=== PATIENT | female | born 1940 | race Caucasian/White ===

== ENCOUNTER 2016-10-23 22:32 | Inpatient (IN) | payer MEDICARE, BC ==
[2016-10-23] MEDS ORDERED: ASPIRIN 81 MG CHEW PO STA (23:04)
[2016-10-23] MEDS ORDERED: NITROGLYCERIN OINT 1 INCH/GM PACKET TOPICAL STA (23:04)
--- NOTE | 2016-10-23 23:06 | ED ---
General Adult HPI - General Chief complaint: Chest Pain Stated complaint: Chest Pain Time Seen by Provider: 10/23/16 22:36 Source: patient, EMS, RN notes reviewed Mode of arrival: EMS Limitations: no limitations - History of Present Illness Initial comments: Patient is a pleasant 75-year-old female presenting to the emergency department complaining of chest discomfort. Onset of symptoms was prior to arrival while watching TV. Discomfort feels a pressure. Discomfort is now near resolved. Patient did have some associated dyspnea. No nausea or diaphoresis. Symptoms are somewhat similar to previous heart problems. Patient does have a history of CABG. No radiation of pain. - Related Data Home Medications Medication Instructions Recorded Confirmed Albuterol Inhaler [Ventolin Hfa 1 - 2 puff INHALATION RT-Q6H PRN 10/23/16 Inhaler] Naproxen Sodium [Aleve] 220 mg PO DAILY PRN 10/23/16 10/23/16 Allergies Allergy/AdvReac Type Severity Reaction Status Date / Time No Known Allergies Allergy Unverified 10/23/16 23:21 Review of Systems ROS Statement: Those systems with pertinent positive or pertinent negative responses have been documented in the HPI. ROS Other: All systems not noted in ROS Statement are negative. Constitutional: Denies: fever Eyes: Denies: eye pain ENT: Denies: ear pain Respiratory: Reports: dyspnea. Denies: cough Cardiovascular: Reports: chest pain Endocrine: Denies: fatigue Gastrointestinal: Denies: abdominal pain Genitourinary: Denies: dysuria Musculoskeletal: Denies: back pain Skin: Denies: rash Neurological: Denies: weakness Past Medical History Past Medical History: Asthma, Diabetes Mellitus, Myocardial Infarction ([place]) History of Any Multi-Drug Resistant Organisms: None Reported Past Surgical History: Appendectomy Additional Past Surgical History / Comment(s): open heart surgery, Past Psychological History: No Psychological Hx Reported Smoking Status: Never smoker Past Alcohol Use History: Occasional Past Drug Use History: None Reported General Exam Limitations: no limitations General appearance: alert, in no apparent distress Head exam: Present: atraumatic Eye exam: Present: normal appearance, PERRL ENT exam: Present: normal oropharynx Neck exam: Present: normal inspection Respiratory exam: Present: normal lung sounds bilaterally. Absent: chest wall tenderness Cardiovascular Exam: Present: regular rate, normal rhythm Expanded Peripheral pulses: 2+: Radial (R), Radial (L), Dorsalis Pedis (R), Dorsalis Pedis (L) GI/Abdominal exam: Present: soft. Absent: tenderness Extremities exam: Present: normal inspection. Absent: pedal edema, calf tenderness Neurological exam: Present: alert Psychiatric exam: Present: normal affect, normal mood Skin exam: Present: normal color Course Vital Signs 10/23/16 10/23/16 22:49 23:54 Temperature 97.4 F L Pulse Rate 103 H 108 H Respiratory 16 20 Rate Blood Pressure 129/65 177/83 O2 Sat by Pulse 95 99 Oximetry - Reevaluation(s) Reevaluation #1: 10/23/16 23:06 Patient was infested with fleas in bed bugs and did need to be cleaned by nursing staff upon arrival. 10/23/16 23:52 Repeat EKG shows sinus tachycardia 107. W[place] 86. QRS 122. QT 362. QTC 43. Right axis. Right bundle branch block. No acute ST change. EKG Findings - EKG Comments: EKG Findings:: Sinus tachycardia 11. WY 100. QRS 116. QT 378. QTC 490. Right axis. Right bundle branch block. No acute ST change. Medical Decision Making - Medical Decision Making Patient reexamined and resting comfortably in bed. Patient did have nausea that has improved with Pepcid and Zofran. Patient currently symptom-free. Patient updated on results and plan. Case was discussed in detail with practitioner Franklin, who will admit for Dr. Jackson, covering for Dr. bell, who admits for Dr. Linton. - Lab Data Result diagrams: 10/23/16 23:05 10/23/16 23:05 Lab Results 10/23/16 10/23/16 10/23/16 Range/Units 23:05 23:05 23:05 WBC 14.6 H (3.8-10.6) k/uL RBC 4.96 (3.80-5.40) m/uL Hgb 14.5 (11.4-16.0) gm/dL Hct 43.2 (34.0-46.0) % MCV 87.2 (80.0-100.0) fL MCH 29.3 (25.0-35.0) pg MCHC 33.6 (31.0-37.0) g/dL RDW 13.9 (11.5-15.5) % Plt Count 329 (150-450) k/uL Neutrophils % 82 % Lymphocytes % 11 % Monocytes % 5 % Eosinophils % 1 % Basophils % 1 % Neutrophils # 12.0 H (1.3-7.7) k/uL Lymphocytes # 1.6 (1.0-4.8) k/uL Monocytes # 0.7 (0-1.0) k/uL Eosinophils # 0.1 (0-0.7) k/uL Basophils # 0.1 (0-0.2) k/uL PT (9.0-12.0) sec INR (<1.2) APTT (22.0-30.0) sec Sodium 139 (137-145) mmol/L Potassium 5.4 H (3.5-5.1) mmol/L Chloride 99 (98-107) mmol/L Carbon Dioxide 28 (22-30) mmol/L Anion Gap 12 mmol/L BUN 21 H (7-17) mg/dL Creatinine 0.50 L (0.52-1.04) mg/dL Est GFR (MDRD) Af Amer >60 (>60 ml/min/1.73 sqM) Est GFR (MDRD) Non-Af >60 (>60 ml/min/1.73 sqM) Glucose 262 H (74-99) mg/dL Calcium 9.4 (8.4-10.2) mg/dL Magnesium 1.5 L (1.6-2.3) mg/dL Total Bilirubin 1.8 H (0.2-1.3) mg/dL AST 53 H (14-36) U/L ALT 22 (9-52) U/L Alkaline Phosphatase 101 (38-126) U/L Total Creatine Kinase 76 (30-135) U/L CK-MB (CK-2) 0.7 (0.0-2.4) ng/mL CK-MB (CK-2) Rel Index 0.9 Troponin I <0.012 (0.000-0.034) ng/mL Total Protein 7.9 (6.3-8.2) g/dL Albumin 4.6 (3.5-5.0) g/dL 10/23/16 Range/Units 23:05 WBC (3.8-10.6) k/uL RBC (3.80-5.40) m/uL Hgb (11.4-16.0) gm/dL Hct (34.0-46.0) % MCV (80.0-100.0) fL MCH (25.0-35.0) pg MCHC (31.0-37.0) g/dL RDW (11.5-15.5) % Plt Count (150-450) k/uL Neutrophils % % Lymphocytes % % Monocytes % % Eosinophils % % Basophils % % Neutrophils # (1.3-7.7) k/uL Lymphocytes # (1.0-4.8) k/uL Monocytes # (0-1.0) k/uL Eosinophils # (0-0.7) k/uL Basophils # (0-0.2) k/uL PT 10.9 (9.0-12.0) sec INR 1.1 (<1.2) APTT 23.5 (22.0-30.0) sec Sodium (137-145) mmol/L Potassium (3.5-5.1) mmol/L Chloride (98-107) mmol/L Carbon Dioxide (22-30) mmol/L Anion Gap mmol/L BUN (7-17) mg/dL Creatinine (0.52-1.04) mg/dL Est GFR (MDRD) Af Amer (>60 ml/min/1.73 sqM) Est GFR (MDRD) Non-Af (>60 ml/min/1.73 sqM) Glucose (74-99) mg/dL Calcium (8.4-10.2) mg/dL Magnesium (1.6-2.3) mg/dL Total Bilirubin (0.2-1.3) mg/dL AST (14-36) U/L ALT (9-52) U/L Alkaline Phosphatase (38-126) U/L Total Creatine Kinase (30-135) U/L CK-MB (CK-2) (0.0-2.4) ng/mL CK-MB (CK-2) Rel Index Troponin I (0.000-0.034) ng/mL Total Protein (6.3-8.2) g/dL Albumin (3.5-5.0) g/dL - Radiology Data Radiology results: image reviewed (Chest x-ray shows no acute process.) Disposition Clinical Impression: Chest pain Disposition: ADMITTED IP TO THIS HOSP Referrals: Azam Linton DO [Primary Care Provider] - 1-2 days Decision Time: 00:23
[2016-10-23 23:19] LABS: Basophils # (A) 0.1 k/uL (0-0.2); Basophils % (A) 1 %; CH 29.6; CHCM 34.1; Eosinophils # (A) 0.1 k/uL (0-0.7); Eosinophils % (A) 1 %; HCT 43.2 % (34.0-46.0); HDW 2.72; HGB 14.5 gm/dL (11.4-16.0); Luc % (Auto) 1; Lymphocytes # (A) 1.6 k/uL (1.0-4.8); Lymphocytes % (A) 11 %; MCH 29.3 pg (25.0-35.0); MCHC 33.6 g/dL (31.0-37.0); MCV 87.2 fL (80.0-100.0); Mean Platelet Volume 8.3; Monocytes # (A) 0.7 k/uL (0-1.0); Monocytes % (A) 5 %; Neutrophils % (A) 82 %; RBC 4.96 m/uL (3.80-5.40); RDW 13.9 % (11.5-15.5); WBC 14.6 k/uL (3.8-10.6); WBC (Perox) 14.18
[2016-10-23 23:28] LABS: ALT 22 U/L (9-52); AST 53 U/L (14-36); Alkaline Phosphatase 101 U/L (38-126); Anion Gap 12 mmol/L; Blood Urea Nitrogen 21 mg/dL (7-17); Calcium 9.4 mg/dL (8.4-10.2); Carbon Dioxide 28 mmol/L (22-30); Chloride 99 mmol/L (98-107); Glucose 262 mg/dL (74-99); Magnesium 1.5 mg/dL (1.6-2.3); Non-African American GFR(MDRD) >60 (>60 ml/min/1.73 sqM); Sodium 139 mmol/L (137-145); Total Bilirubin 1.8 mg/dL (0.2-1.3); Total Protein 7.9 g/dL (6.3-8.2)
[2016-10-23 23:32] LABS: Potassium 5.4 mmol/L (3.5-5.1)
[2016-10-23 23:41] LABS: Creatine Kinase 76 U/L (30-135)
--- NOTE | 2016-10-23 23:44 | XR ---
EXAM: XR Chest, 1 View CLINICAL HISTORY: Reason: chest pain TECHNIQUE: Frontal view of the chest. COMPARISON: No relevant prior studies available. FINDINGS: Lungs: No focal consolidation. Pleural space: Unremarkable. No pneumothorax. Heart: Unremarkable. No cardiomegaly. Mediastinum: Postoperative mediastinum. Bones/joints: No acute osseous abnormality. Upper abdomen: Elevation of the left hemidiaphragm. IMPRESSION: No acute cardiopulmonary process.
[2016-10-23 23:49] LABS: INR 1.1 (<1.2); Partial Thromboplastin Time 23.5 sec (22.0-30.0); Prothrombin Time 10.9 sec (9.0-12.0)
[2016-10-23] MEDS ORDERED: FAMOTIDINE 20 MG/2 ML VIAL IV STA (23:51)
[2016-10-23] MEDS ORDERED: ONDANSETRON 4 MG/2 ML VIAL IVP STA (23:51)
[2016-10-24 00:04] LABS: Creatine Kinase MB 0.7 ng/mL (0.0-2.4); Troponin I <0.012 ng/mL (0.000-0.034)
[2016-10-24] MEDS ORDERED: NITROGLYCERIN SL TABS 0.4 MG TAB SUBLINGUAL PRN (00:24)
[2016-10-24 01:50] VITALS: BMI 22.7
[2016-10-24 06:06] LABS: Creatine Kinase 32 U/L (30-135)
[2016-10-24 06:20] LABS: Creatine Kinase MB 0.7 ng/mL (0.0-2.4); Troponin I <0.012 ng/mL (0.000-0.034)
[2016-10-24] MEDS ORDERED: REGADENOSON 0.4 MG/5 ML SYRINGE IV ONE (10:09)
[2016-10-24] MEDS ORDERED: AMINOPHYLLINE 500 MG/20 ML VIAL IV PRN (10:09)
--- NOTE | 2016-10-24 10:15 | P.CRDCN ---
History of Present Illness Consult date: 10/24/16 History of present illness: This is a 75-year-old female with history of previous bypass surgery and also mitral valve repair who used to follow with Dr. Kunz, comes to the hospital with complaints of chest pain which seemed to mostly in the epigastric and lower sternal area. Patient is unable to give detailed history. She denied any nausea vomiting or sweating. She doesn't seem to be in acute distress with shortness of breath. Her cardiac enzymes are negative. Her EKG showed sinus rhythm and sinus tachycardia with a right bundle branch block pattern. Patient is being scheduled for a nuclear stress test and an echocardiogram. Further recommendations depend upon the findings on the above tests. Her liver enzymes are normal and her potassium is moderately elevated Review of Systems As per the chart Past Medical History Past Medical History: Asthma, Diabetes Mellitus, Myocardial Infarction ([place]) Last Myocardial Infarction Date:: 2007 History of Any Multi-Drug Resistant Organisms: None Reported Past Surgical History: Appendectomy, Tonsillectomy Additional Past Surgical History / Comment(s): open heart surgery, Past Anesthesia/Blood Transfusion Reactions: No Reported Reaction Smoking Status: Never smoker - Past Family History Father Family Medical History: Myocardial Infarction ([place]) Mother Family Medical History: No Reported History Medications and Allergies Home Medications Medication Instructions Recorded Confirmed Type Albuterol Inhaler [Ventolin Hfa 1 - 2 puff INHALATION RT-Q6H PRN 10/23/16 History Inhaler] Naproxen Sodium [Aleve] 220 mg PO DAILY PRN 10/23/16 10/24/16 History Allergies Allergy/AdvReac Type Severity Reaction Status Date / Time No Known Allergies Allergy Verified 10/24/16 01:40 Physical Exam Vitals: Vital Signs Temp Pulse Pulse Resp BP BP Pulse Ox 10/24/16 09:13 96 10/24/16 07:56 98.2 F 94 16 98/59 94 L 10/24/16 04:00 16 10/24/16 02:33 16 10/24/16 01:43 97.9 F 104 H 16 141/68 96 10/24/16 01:06 100 16 172/94 99 10/24/16 00:37 98 18 167/93 96 10/23/16 23:54 108 H 20 177/83 99 10/23/16 22:49 97.4 F L 103 H 16 129/65 95 Intake and Output 10/23/16 10/24/16 10/24/16 22:59 06:59 14:59 Other: # Voids 1 Weight 68.039 kg 54.6 kg GENERAL EXAM: Patient is alert and oriented and doesn't appear to be in any acute distress HEENT: Normocephalic. Normal reaction of pupils, equal size, normal range of extraocular motion. No erythema or exudates in the throat. NECK: No masses, no nuchal rigidity. CHEST: No chest wall deformity. LUNGS: Equal air entry with no crackles or wheeze. HEART: S1 and S2 normal ABDOMEN: Soft. SKIN: No rashes CENTRAL NERVOUS SYSTEM: No focal deficits. EXTREMITIES: No cyanosis, clubbing or edema. Results 10/23/16 23:05 10/23/16 23:05 Cardiac Enzymes 10/23/16 10/23/16 10/24/16 Range/Units 23:05 23:05 05:20 AST 53 H (14-36) U/L CK-MB (CK-2) 0.7 0.7 (0.0-2.4) ng/mL Troponin I <0.012 <0.012 (0.000-0.034) ng/mL Coagulation 10/23/16 Range/Units 23:05 PT 10.9 (9.0-12.0) sec APTT 23.5 (22.0-30.0) sec CBC 10/23/16 Range/Units 23:05 WBC 14.6 H (3.8-10.6) k/uL RBC 4.96 (3.80-5.40) m/uL Hgb 14.5 (11.4-16.0) gm/dL Hct 43.2 (34.0-46.0) % Plt Count 329 (150-450) k/uL Comprehensive Metabolic Panel 10/23/16 Range/Units 23:05 Sodium 139 (137-145) mmol/L Potassium 5.4 H (3.5-5.1) mmol/L Chloride 99 (98-107) mmol/L Carbon Dioxide 28 (22-30) mmol/L BUN 21 H (7-17) mg/dL Creatinine 0.50 L (0.52-1.04) mg/dL Glucose 262 H (74-99) mg/dL Calcium 9.4 (8.4-10.2) mg/dL AST 53 H (14-36) U/L ALT 22 (9-52) U/L Alkaline Phosphatase 101 (38-126) U/L Total Protein 7.9 (6.3-8.2) g/dL Albumin 4.6 (3.5-5.0) g/dL Current Medications Generic Name Dose Route Start Last Admin Trade Name Freq PRN Reason Stop Dose Admin Aminophylline 100 mg 10/24/16 10:09 Aminophylline IV ONCE PRN Patient Response Aspirin 325 mg 10/25/16 21:00 Aspirin PO HS BLADE Heparin Sodium (Porcine) 5,000 unit 10/24/16 09:00 Heparin SQ Q12HR BLADE Nitroglycerin 0.4 mg 10/24/16 00:24 Nitrostat SUBLINGUAL Q5M PRN Chest Pain Regadenoson 0.4 mg 10/24/16 10:09 Lexiscan IV 10/24/16 10:10 ONCE ONE Sodium Chloride 10 ml 10/24/16 09:00 Saline Flush IV BID BLADE Intake and Output 10/23/16 10/24/16 10/24/16 22:59 06:59 14:59 Other: # Voids 1 Weight 68.039 kg 54.6 kg 10/23/16 23:05 10/23/16 23:05 EKG Interpretations (text) Sinus tachycardia with a right bundle branch block pattern Assessment and Plan (1) Coronary artery disease Status: Acute (2) Chest pain Status: Acute (3) H/O mitral valve repair Status: Acute (4) Hypertension Status: Acute (5) Type 2 diabetes mellitus Status: Acute Plan: We will proceed with nuclear stress test and echocardiogram. Further recommendations depend upon the clinical course. If the stress test is negative , may have to investigate further for gallbladder disease or gastrointestinal pathology
[2016-10-24 12:12] LABS: Creatine Kinase 31 U/L (30-135)
[2016-10-24 12:24] LABS: Creatine Kinase MB 0.7 ng/mL (0.0-2.4); Troponin I <0.012 ng/mL (0.000-0.034)
--- NOTE | 2016-10-24 12:30 | P.STRESS ---
- Stress Test Note Stress Test Results/Findings: Exam Performed: NM stress lexiscan cardiolite Exam Date: 10/24/16 Reason for Exam: CP Height: 5 ft 1 in Weight: 54.6 kg Protocol: Lexiscan Stage: N/A Duration of Exercise: N/A Resting Heart Rate: 90 Resting Blood Pressure: 104/57 Maximum Achieved Heart Rate: 100 Maximum Achieved Blood Pressure: 104/57 85% PMHR: N/A 100% PMHR: N/A METS: N/A Technologist Comment: Stress Test Results/Findings: Resting EKG shows normal sinus rhythm with normal NE interval and QRS morphology is suggestive for right bundle branch block pattern is noted. No ST segment depression suggestive of ischemia is noted. No dysrhythmias are noted. The results of the nuclear study will follow.
--- NOTE | 2016-10-24 13:10 | ECHOF ---
Referral Reason:Chest pain and cardiomyopathy MEASUREMENTS -------- HEIGHT: 154.9 cm WEIGHT: 54.4 kg BP: 105/57 RVIDd: 3.3 cm (< 3.3) IVSd: 1.0 cm (0.6 - 1.1) LVIDd: 4.0 cm (3.9 - 5.3) LVPWd: 1.1 cm (0.6 - 1.1) IVSs: 1.3 cm LVIDs: 2.7 cm LVPWs: 1.3 cm LA Diam: 3.1 cm (2.7 - 3.8) LAESV Index (A-L): 16.49 ml/m Ao Diam: 2.9 cm (2.0 - 3.7) AV Cusp: 1.7 cm (1.5 - 2.6) MV EXCURSION: 15.618 mm (> 18.000) MV EF SLOPE: 74 mm/s (70 - 150) EPSS: 1.2 cm MV E Aníbal: 1.39 m/s MV DecT: 297 ms MV A Aníbal: 1.39 m/s MV E/A Ratio: 1.00 AV maxP.36 mmHg AV meanP.40 mmHg RAP: 5.00 mmHg RVSP: 31.41 mmHg FINDINGS -------- Sinus rhythm. This was a technically good study. The left ventricular size is normal. There is borderline concentric left ventricular hypertrophy. Overall left ventricular systolic function is normal with, an EF between 60 - 65 %. The right ventricle is mildly enlarged. Normal LA size by volume 22+/-6 ml/m2. The right atrium is normal in size. There is mild aortic valve sclerosis. Peak/mean gradient across the Aortic Valve is 13.36mmHg / 5.40mmHg. The mitral valve leaflets are mildly thickened. Mild mitral annular calcification present. Mild mitral regurgitation is present. Mild tricuspid regurgitation present. Right ventricular systolic pressure is normal at < 35 mmHg. Moderate pulmonic regurgitation. The aortic root size is normal. Normal inferior vena cava with normal inspiratory collapse consistent with estimated right atrial pressure of 5 mmHg. There is no pericardial effusion. CONCLUSIONS -------- 1. Sinus rhythm. 2. Peak/mean gradient across the Aortic Valve is 13.36mmHg / 5.40mmHg. 3. The mitral valve leaflets are mildly thickened. 4. Mild mitral annular calcification present. 5. Mild mitral regurgitation is present. 6. Mild tricuspid regurgitation present. 7. Right ventricular systolic pressure is normal at < 35 mmHg. 8. Moderate pulmonic regurgitation. 9. The aortic root size is normal. 10. Normal inferior vena cava with normal inspiratory collapse consistent with estimated right atrial pressure of 5 mmHg. 11. There is no pericardial effusion. 12. This was a technically good study. 13. The left ventricular size is normal. 14. There is borderline concentric left ventricular hypertrophy. 15. Overall left ventricular systolic function is normal with, an EF between 60 - 65 %. 16. The right ventricle is mildly enlarged. 17. Normal LA size by volume 22+/-6 ml/m2. 18. The right atrium is normal in size. 19. There is mild aortic valve sclerosis. TECHNICIAN CHEMICAL CLEANING: Dali Bentley RDCS
--- NOTE | 2016-10-24 13:11 | NM ---
EXAMINATION TYPE: NM stress Lexiscan cardiolite DATE OF EXAM: 10/24/2016 COMPARISON: NONE HISTORY: Chest pain TECHNIQUE: After the intravenous administration of 10.8 mCi Tc 99m Sestamibi - Cardiolite resting SP ECT images acquired 43 minutes post injection. The patient received 0.4mg Lexiscan, 26.1 mCi Tc 99m Sestamibi - Stress images obtained [address] injection FINDINGS: There is good uptake of pharmaceutical by the left ventricle without fixed defect. There is no convincing inducible ischemic change. Wall motion is normal and ejection fraction is 71%. IMPRESSION: NORMAL NUCLEAR MEDICINE STRESS MYOCARDIAL SPECT.
--- NOTE | 2016-10-24 14:05 | EST ---
Stress Test Results/Findings: Exam Performed: NM stress lexiscan cardiolite Exam Date: 10/24/16 Reason for Exam: CP Height: 5 ft 1 in Weight: 54.6 kg Protocol: Afluentaiscchata Stage: N/A Duration of Exercise: N/A Resting Heart Rate: 90 Resting Blood Pressure: 104/57 Maximum Achieved Heart Rate: 100 Maximum Achieved Blood Pressure: 104/57 85% PMHR: N/A 100% PMHR: N/A METS: N/A Technologist Comment: Stress Test Results/Findings: Resting EKG shows normal sinus rhythm with normal HI interval and QRS morphology is suggestive for right bundle branch block pattern is noted. No ST segment depression suggestive of ischemia is noted. No dysrhythmias are noted. The results of the nuclear study will follow. HERMINIO
[2016-10-24] MEDS: HEPARIN SODIUM,PORCINE 5,000 UNIT/ML 1 ML VIAL SQ SCH ×2 (16:02→20:35)
--- NOTE | 2016-10-24 17:10 | P.HPIM ---
History of Present Illness H&P Date: 10/24/16 Chief Complaint: Chest pain This is a 75 year old female who underwent a coronary artery bypass graft and mitral valve repair comes in to the hospital with complaints of epigastric pain and atypical midsternal chest pain EKG in the emergency room did not reveal any ST-T wave changes Patient states that her pain has been ongoing for a few days now Denies having any alleviating or exacerbating factors Patient currently lives with her son At the time of my evaluation patient states that her pain is resolved does not report the alleviating factor. Review of Systems All systems: negative Past Medical History Past Medical History: Asthma, Diabetes Mellitus, Myocardial Infarction ([place]) Last Myocardial Infarction Date:: 2007 History of Any Multi-Drug Resistant Organisms: None Reported Past Surgical History: Appendectomy, Tonsillectomy Additional Past Surgical History / Comment(s): open heart surgery, Past Anesthesia/Blood Transfusion Reactions: No Reported Reaction Smoking Status: Never smoker - Past Family History Father Family Medical History: Myocardial Infarction ([place]) Mother Family Medical History: No Reported History Medications and Allergies Home Medications Medication Instructions Recorded Confirmed Type Albuterol Inhaler [Ventolin Hfa 1 - 2 puff INHALATION RT-Q6H PRN 10/23/16 History Inhaler] Allergies Allergy/AdvReac Type Severity Reaction Status Date / Time No Known Allergies Allergy Verified 10/24/16 01:40 Physical Exam Vitals: Vital Signs Temp Pulse Pulse Resp BP BP Pulse Ox 10/24/16 09:13 96 10/24/16 07:56 98.2 F 94 16 98/59 94 L 10/24/16 04:00 16 10/24/16 02:33 16 10/24/16 01:43 97.9 F 104 H 16 141/68 96 10/24/16 01:06 100 16 172/94 99 10/24/16 00:37 98 18 167/93 96 10/23/16 23:54 108 H 20 177/83 99 10/23/16 22:49 97.4 F L 103 H 16 129/65 95 Intake and Output 10/24/16 10/24/16 10/24/16 06:59 14:59 22:59 Other: Voiding Method Toilet # Voids 1 Weight 54.6 kg Physical exam Gen. appearance oriented 3 in no distress Neck is supple no JVD Lungs good air entry clear to auscultation no rhonchi or wheezing Heart S1-S2 heard regular rate and rhythm no murmurs appreciated Abdomen is soft nontender no organomegaly bowel sounds are intact Neurologically cranial nerves II-12 grossly intact no focal motor or sensory deficits noted Skin no abnormalities appreciated Results CBC & Chem 7: 10/23/16 23:05 10/23/16 23:05 Labs: Abnormal Lab Results - Last 24 Hours (Table) 10/23/16 10/23/16 Range/Units 23:05 23:05 WBC 14.6 H (3.8-10.6) k/uL Neutrophils # 12.0 H (1.3-7.7) k/uL Potassium 5.4 H (3.5-5.1) mmol/L BUN 21 H (7-17) mg/dL Creatinine 0.50 L (0.52-1.04) mg/dL Glucose 262 H (74-99) mg/dL Magnesium 1.5 L (1.6-2.3) mg/dL Total Bilirubin 1.8 H (0.2-1.3) mg/dL AST 53 H (14-36) U/L Thrombosis Risk Factor Assmnt - Choose All That Apply Each Risk Factor Represents 3 Points: Age 75 years or older Thrombosis Risk Factor Assessment Total Risk Factor Score: 3 Thrombosis Risk Factor Assessment Level: Moderate Risk Assessment and Plan Plan: #1 atypical chest pain status post negative stress is #2 history of CAD #3 bedbug infestation #4 major depression with suicidal ideation. After patient was told that she's been discharge home patient reports to the nurse that she wanted to hurt herself and has been thinking about it more over the last 2 weeks has not formulated a plan however #5 history of COPD #6 gastritis, acute Plan Start patient on Pepcid 20 mg by mouth twice a day Will have psychiatry evaluate the patient to ensure there is no eminent danger's to patient's life if discharged home
[2016-10-24] MEDS: ASPIRIN 325 MG TAB PO SCH (20:35)
[2016-10-25 03:06] LABS: Cholesterol 177 mg/dL (<200); HDL Cholesterol 35 mg/dL (40-60); Triglycerides 221 mg/dL (<150)
[2016-10-25] MEDS: HEPARIN SODIUM,PORCINE 5,000 UNIT/ML 1 ML VIAL SQ SCH ×2 (08:33→20:17)
[2016-10-25 14:21] LABS: Anion Gap 10 mmol/L; Blood Urea Nitrogen 18 mg/dL (7-17); Calcium 9.4 mg/dL (8.4-10.2); Carbon Dioxide 24 mmol/L (22-30); Chloride 103 mmol/L (98-107); Glucose 235 mg/dL (74-99); Non-African American GFR(MDRD) >60 (>60 ml/min/1.73 sqM); Potassium 4.2 mmol/L (3.5-5.1); Sodium 137 mmol/L (137-145)
[2016-10-26 07:04] LABS: Basophils # (A) 0.1 k/uL (0-0.2); Basophils % (A) 1 %; CH 29.6; CHCM 33.8; Eosinophils # (A) 0.1 k/uL (0-0.7); Eosinophils % (A) 1 %; HCT 40.5 % (34.0-46.0); HDW 2.69; HGB 13.5 gm/dL (11.4-16.0); Luc # (Auto) 0.12; Luc % (Auto) 2; Lymphocytes # (A) 1.8 k/uL (1.0-4.8); Lymphocytes % (A) 27 %; MCH 29.2 pg (25.0-35.0); MCHC 33.2 g/dL (31.0-37.0); MCV 87.8 fL (80.0-100.0); Mean Platelet Volume 7.9; Monocytes # (A) 0.5 k/uL (0-1.0); Monocytes % (A) 7 %; Neutrophils # (A) 4.3 k/uL (1.3-7.7); Neutrophils % (A) 63 %; RBC 4.61 m/uL (3.80-5.40); RDW 13.7 % (11.5-15.5); WBC 6.8 k/uL (3.8-10.6); WBC (Perox) 6.52
[2016-10-26 07:29] LABS: Anion Gap 9 mmol/L; Blood Urea Nitrogen 15 mg/dL (7-17); Calcium 9.5 mg/dL (8.4-10.2); Carbon Dioxide 28 mmol/L (22-30); Chloride 103 mmol/L (98-107); Glucose 225 mg/dL (74-99); Non-African American GFR(MDRD) >60 (>60 ml/min/1.73 sqM); Potassium 4.7 mmol/L (3.5-5.1); Sodium 140 mmol/L (137-145)
[2016-10-26] MEDS: HEPARIN SODIUM,PORCINE 5,000 UNIT/ML 1 ML VIAL SQ SCH ×2 (09:22→20:35)
--- NOTE | 2016-10-26 17:40 | P.PN ---
<Brendon Ortiz - Last Filed: 10/26/16 17:34> Progress Note - Text Attending note. Date of service-10/25/2016 This patient was seen and examined by me . I reviewed the note of my nurse practitioner, Ms. Cyrjodyverona. Discussed with her, additional findings as below. Patient admitted for nonspecific chest pain. Hilliards to be GI. Pepcid was added. Patient is a poor historian. Patient's home medications are being sorted out by the nurse. Proper list not available. Patient's son takes care of the medications. 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 Meantime continue current medication treatment plan. Discharged to be held until to get the correct list so that he can work on patient's discharge. <Zeina Catherine - Last Filed: 10/26/16 18:23> Progress Note - Text DATE OF SERVICE: 10/25/2016 PRESENTING COMPLAINT: Chest pain INTERVAL HISTORY: 75-year-old female with complaints of epigastric pain and atypical midsternal chest pain, status post stress test which was negative. Patient's was to discharge home and reported to the nurse she wondered herself and had been over the last 2 weeks however did not have formulated plan. Patient does have a history of major depression with suicide ideation. Sitter currently at the bedside. 10/25/2016: Lying in bed, awake, talkative, talking about her 5 cats. Awaiting final evaluation from EPS so patient may be discharged home. Tolerating her diet, ambulatory in the room. Patient's discharge has been held due to incomplete medication list. Nursing is called the son to obtain a current updated list this patient has known psychiatric disorders as well as known cardiac surgery history and should be on certain medications however these medications are not on the list. REVIEW OF SYSTEMS: Done for constitutional ,cardiovascular, GI, pulmonary with relevant findings as above. CURRENT MEDICATIONS Aspirin, heparin PHYSICAL EXAM VITAL SIGNS: Temperature 98.2, pulse 87, respiratory patient's 16, blood pressure 112/57, oxygen saturation 97% on room air. GENERAL APPEARANCE: Lying in bed, not in distress EYES: Pupils equal. Conjunctiva normal. NECK: JVD not raised. Mass not palpable. RESPIRATORY: Respiratory effort normal. Lungs clear to auscultation. CARDIOVASCULAR: First and second sounds normal. No edema. ABDOMEN: Soft. Liver and spleen not palpable. No tenderness. No mass palpable. PSYCHIATRY: Alert and oriented x2. Mood and affect a bit quirky INVESTIGATIONS: Sodium 137, potassium 4.2, BUN 18, creatinine 0.63. Blood glucose 225-262 ASSESSMENT: -Coronary artery disease prior history of stent -Possible Alzheimer's dementia late onset type -Acute gastritis -Diabetes mellitus type 2 -Intermittent asthma -Bipolar disorder, patient's currently not suicidal seen by EPS felt okay to be discharged from their standpoint -Bedbug infestation PLAN: Attempting to obtain medications from son or from pharmacy where patient has her medications filled. Await EPS evaluation completion. GLOBAL DIRECTOR [employer]IM[employer] CHANGE statement: Patient was seen and examined by nurse practitioner Zeina Catherine and all elements of the case discussed with attending Dr. Ortiz
--- NOTE | 2016-10-26 19:50 | P.PN ---
Progress Note - Text DATE OF SERVICE: 10/26/2016 PRESENTING COMPLAINT: Chest pain INTERVAL HISTORY: 75-year-old female with complaints of epigastric pain and atypical midsternal chest pain, status post stress test which was negative. Patient's was to discharge home and reported to the nurse she wondered herself and had been over the last 2 weeks however did not have formulated plan. Patient does have a history of major depression with suicide ideation. . 10/25/2016: Lying in bed, awake, talkative, talking about her 5 cats. Sitter at the bedside , Awaiting final evaluation from EPS so patient may be discharged home. Tolerating her diet, ambulatory in the room. Patient's discharge has been held due to incomplete medication list. Nursing is called the son to obtain a current updated list this patient has known psychiatric disorders as well as known cardiac surgery history and should be on certain medications however these medications are not on the list. 10/26/2016: Patient lying in bed, awake, somewhat talkative, anxious to go home. Sitter has been discontinued as patient is no longer considered a threat to self or others per EPS. Tolerating her diet ambulatory within the room, patient is positive for bedbug infestation and is confined to her room. Son has not yet produced a comprehensive medication list, family members have been notified that there is some concerns about living conditions of the patient and the son. Case management and nursing home social worker been consulted to assist. REVIEW OF SYSTEMS: Done for constitutional ,cardiovascular, GI, pulmonary with relevant findings as above. CURRENT MEDICATIONS Aspirin, heparin PHYSICAL EXAM VITAL SIGNS: Temperature 98.5, pulse 83, respiratory rate 18, blood pressure 121/57, oxygen saturation 95% on room air. GENERAL APPEARANCE: Lying in bed, not in distress appears comfortable EYES: Pupils equal. Conjunctiva normal. NECK: JVD not raised. Mass not palpable. RESPIRATORY: Respiratory effort normal. Lungs clear to auscultation. CARDIOVASCULAR: First and second sounds normal. No edema. ABDOMEN: Soft. Liver and spleen not palpable. No tenderness. No mass palpable. PSYCHIATRY: Alert and oriented x1. Mood and affect a bit quirky INVESTIGATIONS: Hemoglobin 13.5, sodium 140, potassium 4.7, BUN 15, creatinine 0.61. Accu- Cheks to 225-262 ASSESSMENT: -Coronary artery disease prior history of stent -Possible Alzheimer's dementia late onset type -Acute gastritis -Diabetes mellitus type 2, uncontrolled -Intermittent asthma -Bipolar disorder, patient's currently not suicidal seen by EPS felt okay to be discharged from their standpoint -Bedbug infestation PLAN: Attempting to obtain medications from son or from pharmacy where patient has her medications filled. Added sliding scale to gain better control over blood glucose. station worker has been notified the patient may need a guardian appointed. Patient does appear to have some level of Alzheimer's dementia, so some concern regarding her ability to make decisions for herself and it is unclear what the exact role of the son is. CLIENT DEVELOPMENT DIRECTOR statement: Patient was seen and examined by nurse practitioner Zeina Catherine and all elements of the case discussed with attending Dr. Ortiz
[2016-10-26] MEDS: ASPIRIN 325 MG TAB PO SCH (20:35)
[2016-10-26] MEDS: INSULIN LISPRO (humaLOG) 300 UNIT/3 ML VIAL SQ SCH (20:38)
[2016-10-26 20:39] LABS: Glucose,Whole Blood 205 mg/dL (75-99)
[2016-10-26] MEDS: metFORMIN 500 MG TAB PO SCH (21:30)
[2016-10-27 08:22] VITALS: RESP 16
[2016-10-27 08:29] LABS: Hemoglobin A1C 9.8 % (4.2-6.1)
[2016-10-27 08:30] LABS: Glucose,Whole Blood 255 mg/dL (75-99)
[2016-10-27] MEDS: INSULIN LISPRO (humaLOG) 300 UNIT/3 ML VIAL SQ SCH ×4 (08:30→21:05)
[2016-10-27] MEDS: ATORVASTATIN 40 MG TAB PO SCH (08:31)
[2016-10-27] MEDS: metFORMIN 500 MG TAB PO SCH ×2 (08:31→17:51)
[2016-10-27] MEDS: HEPARIN SODIUM,PORCINE 5,000 UNIT/ML 1 ML VIAL SQ SCH ×2 (08:31→21:02)
[2016-10-27] MEDS: ASPIRIN 81 MG CHEW PO SCH (08:31)
--- NOTE | 2016-10-27 11:23 | PN ---
DATE OF SERVICE: 10/26/16 ATTENDING NOTE: This patient seen and examined by me. Discussed the care with my nurse practitioner, Ms. Catherine, reviewed her note. The patient presented with atypical chest pain, felt to be gastritis. The patient is rather confused at her baseline. Did ask the nurse to do a mini cogwheel test at the bedside which she completely failed. Still awaiting home medications to be corrected. The patient is tolerating a diet, up to the bathroom. On exam, the patient can only answer simple questions. Does not know the year or the month or where exactly she is. ASSESSMENT: 1. Advanced Alzheimers dementia. 2. Coronary artery disease with prior history of stent. PLAN: At this point, we will decrease the aspirin to 81 mg. We will add Lipitor. Also add Metformin. Try to get outpatient home medications. MTDD
[2016-10-27 12:16] LABS: Glucose,Whole Blood 193 mg/dL (75-99)
--- NOTE | 2016-10-27 14:33 | P.CN ---
Psychiatric Consult - . Consult date: 10/27/16 Consult:: 10/27/16 13:20 Identification and Reason for Consult: Patient is a 75-year-old female who was admitted with chest pain, consult was requested due to the patient making suicidal statements. Patient was seen and interviewed in her room and no family members are present. History of Present Illness: Patient is a 75-year-old female who states that she is and aware of why she came to the hospital, she states that she must of not been feeling well and her son brought her but she could not tell me why she was in the hospital. Patient was unable to report any physical symptoms that may have brought her to the hospital. Patient is a poor historian and no family members were present. Patient states that she did make a statement about wanting to kill herself but states that she had no intention to act and denies that she feels that way now. Patient denied any psychiatric history in the past. Patient states that she lives with her son and he takes care of the bills and her medications. She tells me that she would never kill herself because she wouldn't leave her son or her grandchildren. Patient denies any current suicidal thoughts, denied that she was feeling depressed and was unable to give me any prior history of psychiatric treatment. Patient denied that she is having any difficulties with her memory, or any other concerns. Patient's chart was reviewed prior to the interview. Past Psychiatric History: Patient denies any prior psychiatric history, on the chart there is mention of prior bipolar disorder Past Medical/Surgical History: Patient is status post coronary artery bypass and mitral valve repair which she did not tell me she had, looking at her chest she stated I must have had surgery on my heart. Per the chart the patient has coronary artery disease, diabetes mellitus type 2, asthma and is status post coronary artery bypass and mitral valve repair. Current Medications Aspirin (Aspirin) 81 mg PO DAILY [facility] Last Admin: 10/27/16 08:31 Dose: 81 mg Atorvastatin Calcium (Lipitor) 40 mg PO DAILY [facility] Last Admin: 10/27/16 08:31 Dose: 40 mg Heparin Sodium (Porcine) (Heparin) 5,000 unit SQ Q12HR [facility] Last Admin: 10/27/16 08:31 Dose: 5,000 unit Insulin Human Lispro (Humalog) 0 unit SQ ACHS [facility] PRN Reason: Protocol Last Admin: 10/27/16 13:16 Dose: 2 unit Metformin HCl (Glucophage) 500 mg PO AC-BID [facility] Last Admin: 10/27/16 08:31 Dose: 500 mg Nitroglycerin (Nitrostat) 0.4 mg SUBLINGUAL Q5M PRN PRN Reason: Chest Pain Sodium Chloride (Saline Flush) 10 ml IV BID [facility] Last Admin: 10/27/16 08:31 Dose: 10 ml Family History: Patient is unable to give a family history Social History: Patient states she was born and raised in [place] for parents are both and she has 3 living sisters and one brother. She could not tell me how many years she was and states her over 20 years ago. She told me her son was born in 1967 but could not tell me what his age was. She states that she used to work for the [employer] and worked there for 29 years but could not tell me when she stopped working. She told me she lived in the [facility] and is unable to state when she moved to [place], only stating that a friend of her son's wanted them to move here. She told me that she has grandchildren she could not tell me how many or what their ages were. Patient states that she lives with her son and he manages the money, manages her medications. Substance Use History: Patient states that she uses alcohol only rarely and denied any prior history of drug use. Legal History: She denied Mental Status:Appearance/Attitude: Patient is sitting in her hospital bed dressed in a hospital gown, she was cooperative and appeared in no acute distress. Behavior: Patient did not exhibit any psychomotor agitation or retardation and she made good eye contact throughout the interview. Speech/Language: Patient only responded to my questions and brief sentences with little elaboration, responding to most questions with, I can't remember. Her speech is of normal volume. Thought Process: Patient responded to questions and brief sentences in most of her responses were that she could not remember, she did not elaborate on her responses. Thought Content: Denied any auditory or visual hallucinations, no paranoid or delusional ideation were elicited. Patient states that she is not feeling depressed, did state that she made a statement that she would like to hurt herself but did not mean it. She states that she is sleeping okay. Patient give me no further information regarding her past history and denied any current symptomatology. Suicidal/Homicidal Ideation: She denied any prior suicide attempts, denies that she is currently feeling suicidal and states she would never hurt herself and leave her son, she denied any current homicidal ideation Sensorium/Cognition: Patient was alert she was oriented to person, city, situation and only knew the month by looking at the board in her room, she could not tell me the year but did know it was summer. When asked to perform serial sevens patient could subtract 7 from 100 and stated she could not go any further. She was not able to recall 3 items after 5 minutes. Patient was asked to draw a clock which she was able to do with the numbers in their correct positions but she could not put the hands on the clock to show the time of 10-11. Patient was unable to tell me her sons age, how many grandchildren she had or their ages. Mood/Affect: She was pleasant denied feeling depressed and her affect slightly blunted. Insight/Judgement: Her insight and judgment are impaired. Assessment: Patient is a poor historian, no family member was present to provide any additional information. She denies feeling suicidal currently, denies any depressive symptomatology and does exhibit cognitive deficits. She states she is living with her son and that he manages the bills and money as well as her medications. She is unable to give me a history of any prior psychiatric treatment and so I am unclear if she is on any psychiatric medication currently or was in the past. Current Medications Aspirin (Aspirin) 81 mg PO DAILY [facility] Last Admin: 10/27/16 08:31 Dose: 81 mg Atorvastatin Calcium (Lipitor) 40 mg PO DAILY [facility] Last Admin: 10/27/16 08:31 Dose: 40 mg Heparin Sodium (Porcine) (Heparin) 5,000 unit SQ Q12HR [facility] Last Admin: 10/27/16 08:31 Dose: 5,000 unit Insulin Human Lispro (Humalog) 0 unit SQ ACHS [facility] PRN Reason: Protocol Last Admin: 10/27/16 13:16 Dose: 2 unit Metformin HCl (Glucophage) 500 mg PO AC-BID [facility] Last Admin: 10/27/16 08:31 Dose: 500 mg Nitroglycerin (Nitrostat) 0.4 mg SUBLINGUAL Q5M PRN PRN Reason: Chest Pain Sodium Chloride (Saline Flush) 10 ml IV BID [facility] Last Admin: 10/27/16 08:31 Dose: 10 ml Laboratory Last Values WBC 6.8 k/uL (3.8-10.6) 10/26/16 06:16 RBC 4.61 m/uL (3.80-5.40) 10/26/16 06:16 Hgb 13.5 gm/dL (11.4-16.0) 10/26/16 06:16 Hct 40.5 % (34.0-46.0) 10/26/16 06:16 MCV 87.8 fL (80.0-100.0) 10/26/16 06:16 MCH 29.2 pg (25.0-35.0) 10/26/16 06:16 MCHC 33.2 g/dL (31.0-37.0) 10/26/16 06:16 RDW 13.7 % (11.5-15.5) 10/26/16 06:16 Plt Count 344 k/uL (150-450) 10/26/16 06:16 Neutrophils % 63 % 10/26/16 06:16 Lymphocytes % 27 % 10/26/16 06:16 Monocytes % 7 % 10/26/16 06:16 Eosinophils % 1 % 10/26/16 06:16 Basophils % 1 % 10/26/16 06:16 Neutrophils # 4.3 k/uL (1.3-7.7) 10/26/16 06:16 Lymphocytes # 1.8 k/uL (1.0-4.8) 10/26/16 06:16 Monocytes # 0.5 k/uL (0-1.0) 10/26/16 06:16 Eosinophils # 0.1 k/uL (0-0.7) 10/26/16 06:16 Basophils # 0.1 k/uL (0-0.2) 10/26/16 06:16 PT 10.9 sec (9.0-12.0) 10/23/16 23:05 INR 1.1 (<1.2) 10/23/16 23:05 APTT 23.5 sec (22.0-30.0) 10/23/16 23:05 Sodium 140 mmol/L (137-145) 10/26/16 06:16 Potassium 4.7 mmol/L (3.5-5.1) 10/26/16 06:16 Chloride 103 mmol/L (98-107) 10/26/16 06:16 Carbon Dioxide 28 mmol/L (22-30) 10/26/16 06:16 Anion Gap 9 mmol/L 10/26/16 06:16 BUN 15 mg/dL (7-17) 10/26/16 06:16 Creatinine 0.61 mg/dL (0.52-1.04) 10/26/16 06:16 Est GFR (MDRD) Af Amer >60 (>60 ml/min/1.73 sqM) 10/26/16 06:16 Est GFR (MDRD) Non-Af >60 (>60 ml/min/1.73 sqM) 10/26/16 06:16 Glucose 225 mg/dL (74-99) H 10/26/16 06:16 POC Glucose (mg/dL) 193 mg/dL (75-99) H 10/27/16 12:15 POC Glu Biomedical Field Service Engineer ID Roshni Alcala 10/27/16 12:[address] Glu mg/dL 235 mg/dL 10/26/16 06:16 Hemoglobin A1c 9.8 % (4.2-6.1) H 10/26/16 06:16 Calcium 9.5 mg/dL (8.4-10.2) 10/26/16 06:16 Magnesium 1.5 mg/dL (1.6-2.3) L 10/23/16 23:05 Total Bilirubin 1.8 mg/dL (0.2-1.3) H 10/23/16 23:05 AST 53 U/L (14-36) H 10/23/16 23:05 ALT 22 U/L (9-52) 10/23/16 23:05 Alkaline Phosphatase 101 U/L (38-126) 10/23/16 23:05 Total Creatine Kinase 31 U/L (30-135) 10/24/16 11:05 CK-MB (CK-2) 0.7 ng/mL (0.0-2.4) 10/24/16 11:05 CK-MB (CK-2) Rel Index 2.3 10/24/16 11:05 Troponin I <0.012 ng/mL (0.000-0.034) 10/24/16 11:05 Total Protein 7.9 g/dL (6.3-8.2) 10/23/16 23:05 Albumin 4.6 g/dL (3.5-5.0) 10/23/16 23:05 Triglycerides 221 mg/dL (<150) H 10/24/16 05:20 Cholesterol 177 mg/dL (<200) 10/24/16 05:20 LDL Cholesterol, Calc 98 mg/dL (0-99) 10/24/16 05:20 HDL Cholesterol 35 mg/dL (40-60) L 10/24/16 05:20 Diagnosis: Unspecified neurocognitive disorder Plan: Patient at this time is not acutely suicidal, has no history of prior suicide attempts per the patient and is not reporting any depressive complaints , no psychotic symptomatology was elicited, and it is unclear what her prior psychiatric history was. Patient did have cognitive deficits as stated above, I am unclear about the etiology of this. Patient lives with her son who is managing her medications and caring for her financial concerns. At this time I see no need for any psychotropic medication as she is not expressing any depressive complaints, anxiety complaints and there is no evidence of any manic symptoms. She does have cognitive deficits and it is unclear if this is been worked up in the past to determine an etiology and if she was on any medication at home for this. When she presented to the emergency room she was infested with fleas or bedbugs so it is unclear to me what her living situation is like. Reviewing the chart, social work has been involved with the case, and has made a referral to Adult Protective Services. I spoke with nursing staff, a guardian has been appointed, discharge plans are to an assisted living situation and patient has been cooperative with staff. I see no need for any psychotropic medication at this time, I agree with plan to discharge patient to some form of assisted living and obtaining a guardian for her. Will sign off case, if any questions please do not hesitate to contact me. 10/27/16 13:35 10/27/16 13:37 10/27/16 13:44 10/27/16 14:30
[2016-10-27 17:38] LABS: Glucose,Whole Blood 151 mg/dL (75-99)
--- NOTE | 2016-10-27 18:10 | P.PN ---
Progress Note - Text DATE OF SERVICE: 10/27/2016 PRESENTING COMPLAINT: Chest pain INTERVAL HISTORY: 75-year-old female with complaints of epigastric pain and atypical midsternal chest pain, status post stress test which was negative. Patient's was to discharge home and reported to the nurse she wondered herself and had been over the last 2 weeks however did not have formulated plan. Patient does have a history of major depression with suicide ideation. . 10/25/2016: Lying in bed, awake, talkative, talking about her 5 cats. Sitter at the bedside , Awaiting final evaluation from EPS so patient may be discharged home. Tolerating her diet, ambulatory in the room. Patient's discharge has been held due to incomplete medication list. Nursing is called the son to obtain a current updated list this patient has known psychiatric disorders as well as known cardiac surgery history and should be on certain medications however these medications are not on the list. 10/26/2016: Patient lying in bed, awake, somewhat talkative, anxious to go home. Sitter has been discontinued as patient is no longer considered a threat to self or others per EPS. Tolerating her diet ambulatory within the room, patient is positive for bedbug infestation and is confined to her room. Son has not yet produced a comprehensive medication list, family members have been notified that there is some concerns about living conditions of the patient and the son. Case management and high school social science teacher been consulted to assist. 10/27/2016: Patient lying in bed appears comfortable. Very anxious to go home. Mini cog test was administered yesterday patient did not pass. Psychiatry scheduled to see the patient today to evaluate for suicidality, bipolar disorder and to assist with possible education adjustments for psychiatric meds. Social work is on the case and talking with family regarding the many social issues facing this patient, living arrangements, condition of those living arrangements etc. there may also be a need for the patient to have a guardian appointed and high school social science teacher is handling these issues. REVIEW OF SYSTEMS: Done for constitutional ,cardiovascular, GI, pulmonary with relevant findings as above. CURRENT MEDICATIONS Aspirin, heparin, sliding scale insulin, Glucophage. PHYSICAL EXAM VITAL SIGNS: Temperature 97.9, pulse 96, respirations 16, blood pressure 123/67, oxygen saturation 97% on room air. GENERAL APPEARANCE: Lying in bed, not in distress appears comfortable and cooperative. EYES: Pupils equal. Conjunctiva normal. NECK: JVD not raised. Mass not palpable. RESPIRATORY: Respiratory effort normal. Lungs clear to auscultation. CARDIOVASCULAR: First and second sounds normal. No edema. ABDOMEN: Soft. Liver and spleen not palpable. No tenderness. No mass palpable. PSYCHIATRY: Alert and oriented x2-3. Mood and affect a bit quirky but cooperative INVESTIGATIONS: Labs: None new Accu-Cheks noted ASSESSMENT: -Coronary artery disease prior history of stent -Advanced Alzheimer's dementia late onset type -Acute gastritis -Diabetes mellitus type 2, uncontrolled -Intermittent asthma -Bipolar disorder, patient's currently not suicidal seen by EPS felt okay to be discharged from their standpoint -Bedbug infestation PLAN: There are many social issues facing this patient. Social work involved in working closely with family to make appropriate discharge arrangements. Patient may require guardian. Continue to have difficulty getting accurate medication list from the family. Provided patient a basic update of the plan of care, she is in agreement with the plan, but is very anxious to return home. BRAKE REPAIRER statement: Patient was seen and examined by nurse practitioner Zeina Catherine and all elements of the case discussed with attending Dr. Ortiz
[2016-10-27 20:49] LABS: Glucose,Whole Blood 173 mg/dL (75-99)
[2016-10-28 07:32] LABS: Glucose,Whole Blood 185 mg/dL (75-99)
[2016-10-28] MEDS: HEPARIN SODIUM,PORCINE 5,000 UNIT/ML 1 ML VIAL SQ SCH ×2 (08:07→20:24)
[2016-10-28] MEDS: INSULIN LISPRO (humaLOG) 300 UNIT/3 ML VIAL SQ SCH ×4 (08:07→20:27)
[2016-10-28] MEDS: ATORVASTATIN 40 MG TAB PO SCH (08:08)
[2016-10-28] MEDS: metFORMIN 500 MG TAB PO SCH ×2 (08:08→18:35)
[2016-10-28] MEDS: ASPIRIN 81 MG CHEW PO SCH (08:08)
[2016-10-28 11:17] LABS: Glucose,Whole Blood 164 mg/dL (75-99)
--- NOTE | 2016-10-28 11:55 | PN ---
DATE OF SERVICE: 10/27/16 ATTENDING NOTE: This patient was seen and examined by me today. Discussed with my nurse practitioner, Ms. Catherine, additional findings below. This a a patient with dementia, presented with atypical chest pain. I was informed by Kiki, the drug abuse social worker, that protective services involved has been rather neglect at the house. The patient did tolerate some diet, has been up to the bathroom. Does not complain of anything. On examination, afebrile. Blood pressure controlled. Lungs are clear. Cardiovascular: First and second sounds normal. Accu-Cheks 205, 255, 193. ASSESSMENT: 1. Coronary artery disease. 2. Advanced Alzheimers dementia, late onset type. 3. Diabetes mellitus, Type 2, uncontrolled. PLAN: We will increase the patients Metformin to 1000 mg b.i.d., await further input from drug abuse social worker. Follow. MTDD
[2016-10-28 17:37] LABS: Glucose,Whole Blood 132 mg/dL (75-99)
--- NOTE | 2016-10-28 17:43 | P.PN ---
<Zeina Catherine - Last Filed: 10/28/16 17:44> Progress Note - Text DATE OF SERVICE: 10/28/2016 PRESENTING COMPLAINT: Chest pain INTERVAL HISTORY: 75-year-old female with complaints of epigastric pain and atypical midsternal chest pain, status post stress test which was negative. Patient's was to discharge home and reported to the nurse she wondered herself and had been over the last 2 weeks however did not have formulated plan. Patient does have a history of major depression with suicide ideation. . 10/25/2016: Lying in bed, awake, talkative, talking about her 5 cats. Sitter at the bedside , Awaiting final evaluation from EPS so patient may be discharged home. Tolerating her diet, ambulatory in the room. Patient's discharge has been held due to incomplete medication list. Nursing is called the son to obtain a current updated list this patient has known psychiatric disorders as well as known cardiac surgery history and should be on certain medications however these medications are not on the list. 10/26/2016: Patient lying in bed, awake, somewhat talkative, anxious to go home. Sitter has been discontinued as patient is no longer considered a threat to self or others per EPS. Tolerating her diet ambulatory within the room, patient is positive for bedbug infestation and is confined to her room. Son has not yet produced a comprehensive medication list, family members have been notified that there is some concerns about living conditions of the patient and the son. Case management and clinical social work therapist been consulted to assist. 10/27/2016: Patient lying in bed appears comfortable. Very anxious to go home. Mini cog test was administered yesterday patient did not pass. Psychiatry scheduled to see the patient today to evaluate for suicidality, bipolar disorder and to assist with possible medication adjustments for psychiatric meds. Social work is on the case and talking with family regarding the many social issues facing this patient, living arrangements, condition of those living arrangements etc. there may also be a need for the patient to have a guardian appointed and clinical social work therapist is handling these issues. 10/28/2016: Patient lying in the bed appears comfortable. Very anxious to go home asks every day. Patient remains calm cooperative. Her orientation waxes and wanes anywhere between 1 and 3. Continue to await information from social work regarding appointment of public guardian for patient. REVIEW OF SYSTEMS: Done for constitutional ,cardiovascular, GI, pulmonary with relevant findings as above. CURRENT MEDICATIONS Aspirin, heparin, sliding scale insulin, Glucophage, Lipitor PHYSICAL EXAM VITAL SIGNS: Temperature 97.9, pulse 97, respiratory rate 16, blood pressure 111/59, oxygen saturation 96% on room air. GENERAL APPEARANCE: Lying in bed, not in distress appears comfortable and cooperative. EYES: Pupils equal. Conjunctiva normal. NECK: JVD not raised. Mass not palpable. RESPIRATORY: Respiratory effort normal. Lungs clear to auscultation. CARDIOVASCULAR: First and second sounds normal. No edema. ABDOMEN: Soft. Liver and spleen not palpable. No tenderness. No mass palpable. PSYCHIATRY: Alert and oriented x2-3 this waxes and wanes. Mood and affect a bit quirky but cooperative INVESTIGATIONS: Labs: None new Accu-Cheks noted ASSESSMENT: -Coronary artery disease prior history of stent -Advanced Alzheimer's dementia late onset type -Acute gastritis -Diabetes mellitus type 2, uncontrolled -Intermittent asthma -Bedbug infestation -Depression not otherwise specified PLAN: Await information from guardianship later today. Condition stable, ready for discharge. Await placement preference from appointed guardian. SUPERVISOR OF OPERATIONS statement: Patient was seen and examined by nurse practitioner Zeina Catherine and all elements of the case discussed with attending Dr. Ortiz <Brendon Ortiz - Last Filed: 10/29/16 10:52> Progress Note - Text Attending note. Date of service-10/28/2016 This patient was seen and examined by me . I reviewed the note of my nurse practitioner, Ms. Catherine. Discussed with her, additional findings as below. Patient's comfortable. Laying in bed. Up in bed from the bathroom. Tolerating a diet. Keen to go home. Legal guardian appointment is in place. On examination: Lungs are clear, cardio vascular first seconds are normal. Patient answering simple questions. Investigations: Accu-Cheks noted Assessment and plan: Alzheimer's dementia late onset type, coronary artery disease, diabetes mellitus type II. Await appointment of legal guardian. And placement accordingly, social workers involved.
[2016-10-28 20:37] LABS: Glucose,Whole Blood 184 mg/dL (75-99)
[2016-10-29] MEDS: INSULIN LISPRO (humaLOG) 300 UNIT/3 ML VIAL SQ SCH ×4 (08:53→20:13)
[2016-10-29 09:20] LABS: Basophils # (A) 0.1 k/uL (0-0.2); Basophils % (A) 1 %; CH 29.6; CHCM 34.2; Eosinophils # (A) 0.1 k/uL (0-0.7); Eosinophils % (A) 1 %; HCT 42.2 % (34.0-46.0); HDW 2.72; HGB 14.1 gm/dL (11.4-16.0); Luc % (Auto) 1; Lymphocytes # (A) 2.2 k/uL (1.0-4.8); Lymphocytes % (A) 18 %; MCHC 33.4 g/dL (31.0-37.0); MCV 86.9 fL (80.0-100.0); Monocytes # (A) 0.5 k/uL (0-1.0); Monocytes % (A) 4 %; Neutrophils # (A) 9.5 k/uL (1.3-7.7); Neutrophils % (A) 76 %; RBC 4.86 m/uL (3.80-5.40); RDW 14.1 % (11.5-15.5); WBC 12.5 k/uL (3.8-10.6); WBC (Perox) 12.16
[2016-10-29 09:21] LABS: Anion Gap 11 mmol/L; Blood Urea Nitrogen 12 mg/dL (7-17); Calcium 9.7 mg/dL (8.4-10.2); Carbon Dioxide 26 mmol/L (22-30); Chloride 102 mmol/L (98-107); Glucose 202 mg/dL (74-99); Non-African American GFR(MDRD) >60 (>60 ml/min/1.73 sqM); Potassium 4.1 mmol/L (3.5-5.1); Sodium 139 mmol/L (137-145)
[2016-10-29] MEDS: metFORMIN 500 MG TAB PO SCH ×3 (09:58→17:21)
[2016-10-29] MEDS: HEPARIN SODIUM,PORCINE 5,000 UNIT/ML 1 ML VIAL SQ SCH ×2 (09:58→20:13)
[2016-10-29] MEDS: ASPIRIN 81 MG CHEW PO SCH ×2 (09:58→15:00)
[2016-10-29] MEDS: ATORVASTATIN 40 MG TAB PO SCH ×2 (09:58→15:00)
[2016-10-29] MEDS ORDERED: BISMUTH SUBSALICYLATE 4,192 MG/240 ML BOTTLE PO PRN (15:02)
[2016-10-29] MEDS: FAMOTIDINE 20 MG TAB PO SCH ×2 (17:21→20:13)
--- NOTE | 2016-10-29 18:04 | P.PN ---
<Zeina Catherine - Last Filed: 10/29/16 17:53> Progress Note - Text DATE OF SERVICE: 10/29/2016 PRESENTING COMPLAINT: Chest pain INTERVAL HISTORY: 75-year-old female with complaints of epigastric pain and atypical midsternal chest pain, status post stress test which was negative. Patient's was to discharge home and reported to the nurse she wondered herself and had been over the last 2 weeks however did not have formulated plan. Patient does have a history of major depression with suicide ideation. . 10/25/2016: Lying in bed, awake, talkative, talking about her 5 cats. Sitter at the bedside , Awaiting final evaluation from EPS so patient may be discharged home. Tolerating her diet, ambulatory in the room. Patient's discharge has been held due to incomplete medication list. Nursing is called the son to obtain a current updated list this patient has known psychiatric disorders as well as known cardiac surgery history and should be on certain medications however these medications are not on the list. 10/26/2016: Patient lying in bed, awake, somewhat talkative, anxious to go home. Sitter has been discontinued as patient is no longer considered a threat to self or others per EPS. Tolerating her diet ambulatory within the room, patient is positive for bedbug infestation and is confined to her room. Son has not yet produced a comprehensive medication list, family members have been notified that there is some concerns about living conditions of the patient and the son. Case management and social problems specialist been consulted to assist. 10/27/2016: Patient lying in bed appears comfortable. Very anxious to go home. Mini cog test was administered yesterday patient did not pass. Psychiatry scheduled to see the patient today to evaluate for suicidality, bipolar disorder and to assist with possible medication adjustments for psychiatric meds. Social work is on the case and talking with family regarding the many social issues facing this patient, living arrangements, condition of those living arrangements etc. there may also be a need for the patient to have a guardian appointed and social problems specialist is handling these issues. 10/28/2016: Patient lying in the bed appears comfortable. Very anxious to go home asks every day. Patient remains calm cooperative. Her orientation waxes and wanes anywhere between 1 and 3. Continue to await information from social work regarding appointment of public guardian for patient. 10/29/2016: Lying in bed, has some nausea, choked on her pills. A bit lethargic today however cooperative. Orientation continues to wax and wane. Public guardianship appointed, await placement. Patient is ambulatory within the room , doesn't feel like eating. Complains of having nausea. REVIEW OF SYSTEMS: Done for constitutional ,cardiovascular, GI, pulmonary with relevant findings as above. CURRENT MEDICATIONS Aspirin, heparin, sliding scale insulin, Glucophage, Lipitor PHYSICAL EXAM VITAL SIGNS: Temperature 98.0, pulse 99, respirations 16, blood pressure 108/63, oxygen saturation 94% on room air. GENERAL APPEARANCE: Lying in bed, appears comfortable and cooperative. EYES: Pupils equal. Conjunctiva normal. NECK: JVD not raised. Mass not palpable. RESPIRATORY: Respiratory effort normal. Lungs clear to auscultation. CARDIOVASCULAR: First and second sounds normal. No edema. ABDOMEN: Soft. Liver and spleen not palpable. No tenderness. No mass palpable, small amount of emesis, after choking on pills. PSYCHIATRY: Alert and oriented x2-3 this waxes and wanes. Mood and affect a bit quirky but cooperative INVESTIGATIONS: Labs: White blood cell count 12.5, all other labs unremarkable ASSESSMENT: -Coronary artery disease prior history of stent -Advanced Alzheimer's dementia late onset type -Acute gastritis -Diabetes mellitus type 2, uncontrolled -Intermittent asthma -Bedbug infestation -Depression not otherwise specified PLAN: Continue current medication and treatment plan, added some Reglan to help with nausea. Awaiting placement. Plan of care discussed with patient she is in agreement. MASH PROCESSING OPERATOR statement: Patient was seen and examined by nurse practitioner Zeina Catherine and all elements of the case discussed with attending Dr. Ortiz <Brendon Ortiz - Last Filed: 10/29/16 23:04> Progress Note - Text Attending note. Date of service-10/29/2016 This patient was seen and examined by me . I reviewed the note of my nurse practitioner, Ms. Catherine. Discussed with her, additional findings as below. Stable. Tolerating a diet. Legal guardian was appointed. Insurance clearance pending for placement. Patient does not normally like to have her breakfast On examination: Lungs clear, cardio vascular first seconds are normal Investigations: Labs noted Accu-Cheks better Assessment and plan: Alzheimer's dementia/cor coronary artery disease/diabetes Continue current medication treatment plan. Await placement
[2016-10-29] MEDS: METOCLOPRAMIDE 5 MG/ML 2 ML VIAL IVP PRN (18:20)
[2016-10-29 20:11] LABS: Glucose,Whole Blood 163 mg/dL (75-99)
[2016-10-30] MEDS: ASPIRIN 81 MG CHEW PO SCH (08:18)
[2016-10-30] MEDS: metFORMIN 500 MG TAB PO SCH (08:18)
[2016-10-30] MEDS: HEPARIN SODIUM,PORCINE 5,000 UNIT/ML 1 ML VIAL SQ SCH (08:18)
[2016-10-30] MEDS: FAMOTIDINE 20 MG TAB PO SCH (08:18)
[2016-10-30] MEDS: ATORVASTATIN 40 MG TAB PO SCH (08:18)
[2016-10-30] MEDS: INSULIN LISPRO (humaLOG) 300 UNIT/3 ML VIAL SQ SCH ×2 (08:22→12:59)
[2016-10-30 08:33] LABS: Anion Gap 10 mmol/L; Blood Urea Nitrogen 14 mg/dL (7-17); Carbon Dioxide 22 mmol/L (22-30); Chloride 106 mmol/L (98-107); Glucose 141 mg/dL (74-99); Non-African American GFR(MDRD) >60 (>60 ml/min/1.73 sqM); Sodium 138 mmol/L (137-145)
[2016-10-30] MEDS: METOCLOPRAMIDE 5 MG/ML 2 ML VIAL IVP PRN (12:59)
--- NOTE | 2016-10-30 15:21 | P.DS ---
Providers Date of admission: 10/26/16 12:37 Expected date of discharge: 10/30/16 Attending physician: Brendon Ortiz Consults: 10/24/16 00:24 Consult Physician Urgent Consulting Provider: Zoltan Dunn Consult Reason/Comments: cp Do you want consulting provider notified?: Yes 10/24/16 16:34 Consult Physician Routine Consulting Provider: Kyung Harrison Consult Reason/Comments: wanting to kill herself Do you want consulting provider notified?: Yes Primary care physician: [facility] Course: Hospital course: This patient with a history of diabetes coronary artery disease, admitted with atypical chest pain. Seen by cardiology who did a nuclear stress test came back to be negative. It was felt to be rather atypical. It does seem patient is not taking most of her medications at home. Patient was living with her son. Protective service was involved because issues at home and patient was assigned a legal guardian. At the hospital patient starting a diet up and back from the bathroom. 2-D echo shows preserved LV function. He had a bedside any cogwheel test which the patient flunked completely. Patient felt to have underlying dementia. The patient is able to carry out a simple conversation. Patient did express suicidal ideations was seen by psychiatry who did not who did not feel that felt the need for any antidepressants on his medications. Patient is comfortable otherwise doing well. On examination: Lungs are clear cardiac sounds are normal. Patient answering simple questions. Disposition: [facility] Accepting physician: Dr. Linton Final diagnosis -Coronary artery disease prior history of stent -Advanced Alzheimer's dementia late onset type -Acute gastritis -Diabetes mellitus type 2, uncontrolled -Intermittent asthma -Bedbug infestation -Depression not otherwise specified Plan - Discharge Summary New Discharge Prescriptions: New Famotidine [Pepcid] 20 mg PO BID #60 tablet Nitroglycerin Sl Tabs [Nitrostat] 0.4 mg SUBLINGUAL Q5M PRN #20 tab PRN Reason: Chest Pain Aspirin 81 mg PO DAILY Atorvastatin [Lipitor] 40 mg PO DAILY tab Famotidine [Pepcid] 20 mg PO BID tab INSULIN LISPRO (humaLOG) [humaLOG (formulary)] 0 unit SQ ACHS vial Isosorbide Mononitrate ER [Imdur] 15 mg PO DAILY #1 dose metFORMIN HCL [Glucophage] 1,000 mg PO BID-W/MEALS tab Melatonin 3 mg PO HS #1 tablet Continue Albuterol Inhaler [Ventolin Hfa Inhaler] 1 - 2 puff INHALATION RT-Q6H PRN PRN Reason: Shortness Of Breath Discontinued Naproxen Sodium [Aleve] 220 mg PO DAILY PRN PRN Reason: Pain Metoprolol Tartrate [Lopressor] 25 mg PO BID Ibuprofen [Motrin] 600 mg PO Q6HR PRN PRN Reason: Pain HYDROcodone/APAP 5-325MG [[place] 5-325] 1 tab PO Q4HR PRN PRN Reason: Pain Discharge Medication List Albuterol Inhaler [Ventolin Hfa Inhaler] 1 - 2 puff INHALATION RT-Q6H PRN [History] Famotidine [Pepcid] 20 mg PO BID #60 tablet 10/24/16 [Rx] Nitroglycerin Sl Tabs [Nitrostat] 0.4 mg SUBLINGUAL Q5M PRN #20 tab 10/25/16 [Rx ] Aspirin 81 mg PO DAILY 10/30/16 [Rx] Atorvastatin [Lipitor] 40 mg PO DAILY tab 10/30/16 [Rx] Famotidine [Pepcid] 20 mg PO BID tab 10/30/16 [Rx] INSULIN LISPRO (humaLOG) [humaLOG (formulary)] 0 unit SQ ACHS vial 10/30/16 [Rx ] Isosorbide Mononitrate ER [Imdur] 15 mg PO DAILY #1 dose 10/30/16 [Rx] Melatonin 3 mg PO HS #1 tablet 10/30/16 [Rx] metFORMIN HCL [Glucophage] 1,000 mg PO BID-W/MEALS tab 10/30/16 [Rx] Follow up Appointment(s)/Referral(s): Azam Linton DO [Primary Care Provider] - 1-2 days Dony Tovar MD [STAFF PHYSICIAN] - 1 Week Ambulatory/Diagnostic Orders: Basic Metabolic Panel [LAB.AMB] Location: Determined By Patient Complete Blood Count w/diff [LAB.AMB] Location: Determined By Patient Activity/Diet/Wound Care/Special Instructions: Take metformin before lunch and supper Discharge Disposition: TRANSFER TO SNF/F
[2016-10-30 15:39] VITALS: BP 118/58; PULSE 100; TEMP 97.9
== END 2016-10-30 16:23 | DRG 392 ==
LOC: EC 22:32 → 3OBS 10-24 00:24 → OBSVTOIN 10-26 12:37 → 5MS5E 10-26 20:59
PROVIDERS: ADMIT Hospitalist; ATTEND Hospitalist
DX: K29.00 Acute gastritis without bleeding (principal); R45.851 Suicidal ideations; E11.65 Type 2 diabetes mellitus with hyperglycemia; G30.1 Alzheimer's disease with late onset; F02.80 Dementia in other diseases classified elsewhere, unspecified severity, without behavioral disturbance, psychotic disturbance, mood disturbance, and anxiety; B88.8 Other specified infestations; I10 Essential (primary) hypertension; J44.9 Chronic obstructive pulmonary disease, unspecified; I45.10 Unspecified right bundle-branch block; J45.20 Mild intermittent asthma, uncomplicated; F31.9 Bipolar disorder, unspecified; I25.2 Old myocardial infarction; I25.10 Atherosclerotic heart disease of native coronary artery without angina pectoris; Z79.899 Other long term (current) drug therapy; Z95.1 Presence of aortocoronary bypass graft; Z82.49 Family history of ischemic heart disease and other diseases of the circulatory system
CPT/HCPCS: 36415; 71010; 78452; 80048; 80053; 80061; 82550; 82553; 83036; 83735; 84484; 85025; 85610; 85730; 93005; 93017; 93306; 94760; 96374; 96375; 99285

== ENCOUNTER → 2018-05-17 | Outpatient (CLI) | payer MEDICARE, BC ==
--- NOTE | 2018-05-17 17:17 | BD ---
EXAMINATION TYPE: Axial Bone Density DATE OF EXAM: 05/17/2018 COMPARISON: NONE CLINICAL HISTORY: 77-year-old female vitamin D deficiency Height: 59.5 IN Weight: 102 LBS RISK FACTORS HISTORY OF: Surgery to Hip(right): YES When: UNSURE Active: LIMITED Diet low in dairy products/other sources of calcium: YES MEDICATIONS: Thyroid Medications: YES Which medication: Synthroid How Lon YEAR Additional Medications: VIT D WEEKLY 50,000 UNIT, SYNTHROID, FENOFIBRATE, LORAZEPAM, ASPIRIN, MIRTAZA PINE, MEMANTINE, FUROSEMIDE, ATORVASTATIN, ZOLPIDEM, VIT B12 EXAM MEASUREMENTS: Bone mineral densitometry was performed using the [employer] System. Bone mineral density as measured about the Lumbar spine is: ----- L1-L4(G/cm2): 0.919 T Score Values are as follows: ----- L2: -2.5 ----- L3: -1.7 ----- L4: -2.1 ----- L1-L4: -2.2 Bone mineral density BASELINE Bone mineral density about the L hip (g/cm2): 0.771 T Score values are as follows: -----L Neck: -1.9 -----L Total: -1.6 Bone mineral density BASELINE IMPRESSION: Osteopenia (T Score between -2.5 and -1). However, note that measurements are approaching osteoporosi s in the lumbar spine as bone density average limited to only L1 and L2 qualifies as osteoporosis. There is slightly increased risk of fracture and the patient may be considered for treatment. Re-Screen 2-5 years. NOTE: T-SCORE=SD OF THE YOUNG ADULT MEAN.
== END | disposition home or self-care (01) ==
LOC: RADBDWWP 14:16 → EEVIPCON 14:20
PROVIDERS: ATTEND General Practice
DX: Z00.00 Encounter for general adult medical examination without abnormal findings (principal); M81.0 Age-related osteoporosis without current pathological fracture; E55.9 Vitamin D deficiency, unspecified; F02.81 Dementia in other diseases classified elsewhere, unspecified severity, with behavioral disturbance; R32 Unspecified urinary incontinence; E11.65 Type 2 diabetes mellitus with hyperglycemia
CPT/HCPCS: 77080